=== PATIENT | female | born 1990 ===

== ENCOUNTER 2018-07-13 22:17 | Outpatient (CLI) | payer OTHER ==
[2018-07-13] MEDS ORDERED: PRENATAL TABLE1 EAC1 (23:37)
[2018-07-13] MEDS ORDERED: IRON PO (23:39)
== END 2018-07-14 16:52 | disposition home or self-care (01) ==
LOC: OBS/DEL 22:17
DX: O60.03 Preterm labor without delivery, third trimester (principal); O34.13 Maternal care for benign tumor of corpus uteri, third trimester; D25.9 Leiomyoma of uterus, unspecified; Z34.02 Encounter for supervision of normal first pregnancy, second trimester

== ENCOUNTER 2018-09-19 08:12 | Inpatient (IN) | payer OTHER ==
[~2018-09-19] VITALS: Ht 162.6 cm; Wt 179.0 kg
[~2018-09-19 08:12] MED LIST: IRON PO; PRENATAL TABLE1 EAC1
[2018-09-21] MEDS ORDERED: HYDROCORTISO453.6 G1 RECTAL (11:56)
[2018-09-21] MEDS ORDERED: DOCUSATE SODIU100 MG PO (11:56)
[2018-09-21] MEDS ORDERED: PRENATAL TABLE1 EAC1 PO (11:56)
== END 2018-09-21 14:22 | DRG 768 ==
LOC: LDR 08:12 → OB/GYN 08:12
PROC: 10E0XZZ Delivery of Products of Conception, External Approach (ICD-10-PCS; principal; 2018-09-19)
PROC: 0DQR0ZZ Repair Anal Sphincter, Open Approach (ICD-10-PCS; 2018-09-19)
PROC: 0W8NXZZ Division of Female Perineum, External Approach (ICD-10-PCS; 2018-09-19)
PROC: 10907ZC Drainage of Amniotic Fluid, Therapeutic from Products of Conception, Via Natural or Artificial Opening (ICD-10-PCS; 2018-09-19)
PROC: 4A1HXCZ Monitoring of Products of Conception, Cardiac Rate, External Approach (ICD-10-PCS; 2018-09-19)
DX: O70.21 Third degree perineal laceration during delivery, IIIa (principal); Z37.0 Single live birth; Z3A.39 39 weeks gestation of pregnancy